=== PATIENT | female | born 1960 | race Caucasian/White ===

== ENCOUNTER 2019-12-24 14:55 | Emergency (ER) | payer MEDICARE, BC, SELFPAY ==
--- NOTE | ~2019-12-24 | CT_ITS ---
EXAMINATION: CT brain wo con DATE: 12/24/2019 18:04 INDICATION: Headache TECHNIQUE: Computed tomography (CT) of the head was performed without intravenous contrast. Sagittal and coronal reconstructions were performed. The mA was adjusted according to patient size. Iterative reconstruction technique was employed. The dose-length product was 605.33 mGy-cm. COMPARISON: head CT dated 05/06/15 FINDINGS: No acute intracranial hemorrhage, acute infarction or abnormal extra axial fluid collection. Ventricl es are normal and symmetric. No mass/mass effect. The orbits, paranasal sinuses and mastoid air cells are normal. Intracranial calcified cerebral atherosclerosis is noted. IMPRESSION: 1. Normal brain. No acute intracranial process. Reviewed, dictated and finalized at location A.
[2019-12-24 15:17] VITALS: BP 135/102; PULSE 80; RESP 20; TEMP 36.9; O2SAT 100
[2019-12-24] MEDS: SODIUM CHLORIDE 0.9% IV 1,000 ML 999 ML IV CONT (15:38)
[2019-12-24] MEDS: KETOROLAC 30 MG/ML VIAL (*BKC) IV PUSH (15:38)
[2019-12-24] MEDS: METOCLOPRAMIDE HCL INJ 10 MG/2 ML VIAL IV PUSH (15:39)
[2019-12-24 15:50] LABS: Basophils Percent Auto 0.6 % (0.2-1.2); Eosinophils Absolute Auto 0.1 K/mm3 (0-0.3); Eosinophils Percent Auto 1.9 % (0-4.4); Hematocrit 38.6 % (37.0-47.0); Hemoglobin 12.7 g/dL (12.0-15.0); Immature Granulocyte Absolute 0.02 K/mm3 (0.00-0.031); Immature Granulocyte Percent A 0.3 % (0-0.5); Lymphocytes Absolute Auto 1.88 K/mm3 (0.9-3.2); Lymphocytes Percent Auto 29.8 % (18.3-44.2); Mean Corpuscular HGB Conc 32.9 g/dl (32-36); Mean Corpuscular Hemoglobin 28.3 pg (26-34); Mean Platelet Volume 9.6 fl (7.4-10.4); Monocytes Absolute Auto 0.3 K/mm3 (0.1-0.6); Monocytes Percent Auto 5.2 % (2.6-8.5); Neutrophils Absolute Auto 3.9 K/mm3 (1.3-6.7); Neutrophils Percent Auto 62.2 % (45.5-73.1); Platelet Count Result 305 k/mm3 (150-375); Red Blood Count 4.49 M/mm3 (4.2-5.4); Red Cell Distribution Width 13.8 % (11.5-14.5); White Blood Count 6.3 K/mm3 (4.5-10.0)
--- NOTE | 2019-12-24 15:59 | ED.GENADULT ---
HPI - General Adult General Chief complaint: Headache Stated complaint: headache, n/v Time Seen by Provider: 12/24/19 15:14 History of Present Illness HPI narrative: Patient is a 59 y/o female complaining of generalized headache since yesterday. She rates her headache as 10/10 initially when it started and as 4/10 currently. She states that she took some Ibuprofen, which did not help with her headache initially. She states that it's one of the worst headache she had. She has some neck pain, nausea, vomiting and sweating. She has no fever. She has no sorethroat, cough, chest pain or abdominal pain. Related Data Home Medications Medication Instructions Recorded Confirmed clonazepam 0.5 mg PO DAILY 12/24/19 fluoxetine 40 mg PO DAILY 12/24/19 Allergies Allergy/AdvReac Type Severity Reaction Status Date / Time No Known Allergies Allergy Verified 12/24/19 15:37 Review of Systems Constitutional: Constitutional: Denies chills, Reports excessive sweating, Denies fever(s), Reports headache(s) and Denies weakness Eyes: Eyes: Denies blurry vision ENT: Reports headache(s) and Denies neck pain Cardiovascular: Cardiovascular: Denies chest pain and Denies dyspnea Respiratory: Respiratory: Denies cough and Denies dyspnea Gastrointestinal: Gastrointestinal: Denies abdominal pain, Denies diarrhea, Denies nausea and Denies vomiting Genitourinary: Genitourinary: Denies hematuria and Denies dysuria Musculoskeletal: Musculoskeletal: Denies back pain and Reports neck pain Neurologic: Reports headache(s) and Denies weakness [facility] Social History Social History Gender identity (if verbalized by the patient): Female Exam Const: General: no acute distress and well developed Orientation/consciousness: oriented to person, oriented to place, oriented to time and patient oriented x3 HENMT: Head: normocephalic Ears: external ears normal General nose exam: Normal external nose present Eyes: General: appearance normal, both eyes and all related structures Conjunctivae: conjunctivae normal Neck: Neck: normal visual inspection and full ROM Chest: Chest palpation & inspection: normal inspection of the chest and no tenderness Resp: Effort & Inspection: normal respiratory effort Auscultation: clear to auscultation bilaterally Cardio: Rate: regular rate Rhythm: regular rhythm GI: GI Palp: No abdominal tenderness and Yes Soft to palpation Skin: General skin exam: normal color and turgor normal Neuro: General: oriented to person, oriented to place, oriented to time and patient oriented x3 Cranial nerves: Yes CN's II-XII intact bilaterally Cognition (Neuro): normal cognition Speech: normal speech Motor exam (neuro): 5/5 motor strength present throughout Sensory Exam: normal sensation Coordination: [id number] test normal and [id number] test normal Extrem: General: normal to inspection, full ROM and no pedal edema Psych: Appearance: grossly normal Mental Status: mental status grossly normal Affect: normal affect Course Vital Signs Vital signs: Vital Signs Temperature 36.9 C 12/24/19 15:17 Pulse Rate 80 12/24/19 15:17 Respiratory Rate 20 12/24/19 15:17 Blood Pressure 135/102 H 12/24/19 15:17 Pulse Oximetry 100 12/24/19 15:17 Temperature 36.9 C 12/24/19 15:17 Pulse Rate 71 12/24/19 17:09 Respiratory Rate 20 12/24/19 17:09 Blood Pressure 136/80 12/24/19 17:09 Pulse Oximetry 98 12/24/19 17:09 Procedures Lumbar Puncture Lumbar Puncture #1: Lumbar Puncture Date: 12/24/19 Lumbar Puncture Time: 17:22 Time Out Performed: Yes Patient Position: left lateral decubitus Skin Prep: Povidone-Iodine 1% Anesthetic: lidocaine 1% Amount of anesthesia used (mL): 2 Spinal Needle Gauge: 20G Interspace Used: L4-L5 Spinal Fluid: fluid obtained Fluid Initially Obtained: clear
[2019-12-24 16:01] LABS: Blood Urea Nitrogen 12 mg/dL (7-17); Carbon Dioxide 26 mmol/L (22-30); Chloride 101 mmol/L (98-107); Estimated CRCL calculation 66 ml/min; Estimated Glomerular Filt Rate > 60; Glucose 93 mg/dL (65-105); Potassium 4.1 mmol/L (3.4-5.0); Sodium 135 mmol/L (137-145)
[2019-12-24 16:03] LABS: Add Urine Microscopic? NO; Appearance Urine Clear (Clear); Bilirubin Urine Negative (Negative); Blood Urine Negative (Negative); Color Urine Yellow (Yellow); Glucose Urine UA Negative (Negative); Ketones Urine Negative (Negative); Leukocyte Esterase Ur Negative LEU/UL (Negative); Nitrate Urine Negative (Negative); Protein Urine Negative (Negative); Specific Grav Ur 1.013 (1.001-1.035); Urobilinogen Urine Negative mg/dL (<2.0)
[2019-12-24 16:15] VITALS: BP 129/106; PULSE 74; RESP 20; O2SAT 98
[2019-12-24 17:09] VITALS: BP 136/80; PULSE 71; RESP 20; O2SAT 98
[2019-12-24 17:56] LABS: Glucose CSF 56 mg/dL (40-70); Total Protein CSF 26 mg/dL (12-60)
[2019-12-24 18:43] LABS: Appearance CSF Clear (Clear); CSF source CSF; Color CSF Colorless (Colorless)
[2019-12-24 18:44] LABS: Nucleated Cell CSF 3 /uL (0-5); Red Blood Cell CSF 0 (0-2)
[2019-12-24 18:46] LABS: Lymphocytes CSF 80 % (40-80); Monocytes CSF 20 % (15-45)
[2019-12-24 19:27] VITALS: BP 128/78; PULSE 60; RESP 20; O2SAT 100
[2019-12-24 19:39] VITALS: BP 121/79; PULSE 61; RESP 20; O2SAT 100
[2019-12-27 12:27] LABS: Herpes Simplex Type 1 DNA PCR Not Detected (Not Detected); Herpes Simplex Type 2 DNA PCR Not Detected (Not Detected)
== END 2019-12-24 19:55 | disposition home or self-care (01) ==
PROVIDERS: Emergency Provider Emergency Medicine
DX: R51 Headache (principal)
CPT/HCPCS: 36415; 62270; 70450; 80048; 81003; 82945; 84157; 85025; 87070; 87205; 87529; 88108; 89051; 96361; 96374; 96375; 99285; J1200; J1885; J2765; J3010; J7030

== ENCOUNTER 2021-04-05 08:58 | Emergency (ER) | payer MEDICARE, SELFPAY ==
--- NOTE | ~2021-04-05 | XR_ITS ---
EXAMINATION: XR shoulder LT min 2V EXAM DATE: 04/05/2021 09:49 INDICATION: L shoulder pain for months. TECHNIQUE: The following left shoulder projections obtained: frontal projection with internal rotatio n, frontal projection with external rotation, Grashey, and scapular Y view (4+ views). There is no p rior study for comparison. FINDINGS: No evidence of left shoulder rotator cuff calcific tendinosis. There is mild glenohumeral joint, mild acromioclavicular joint primary osteoarthritis. There are no acute fractures or dislocat ions identified. There is no subcutaneous gas. The soft tissue is unremarkable. There are no radi opaque foreign bodies. IMPRESSION: Mild left shoulder osteoarthritis. Reviewed, dictated and finalized at location A.
[2021-04-05 09:15] VITALS: BP 175/88; PULSE 87; RESP 18; O2SAT 99
--- NOTE | 2021-04-05 09:20 | PC.NURSE ---
EDP Curt notified of patient's moderate risk on [place] assessment. Per EDP, no further interventions needed.
[2021-04-05] MEDS: KETOROLAC 30 MG/ML VIAL (*BKC) IM (09:57)
--- NOTE | 2021-04-05 10:20 | ED.GENADULT ---
HPI - General Adult General Chief complaint: Extremity Injury, Upper Stated complaint: left post shoulder pain Time Seen by Provider: 04/05/21 09:18 History of Present Illness HPI narrative: Patient presents with left shoulder pain. Patient reports she fell several months ago onto her left shoulder ever since then she has had intermittent left shoulder pain. Ribs over the past couple days she has had increase in her left shoulder pain that is worse with movement of the left upper extremity. She denies any new trauma she denies any focal numbness or weakness she reports her pain is really severe so she went to come the ER for evaluation Related Data Home Medications Medication Instructions Recorded Confirmed clonazepam 0.5 mg PO DAILY 12/24/19 fluoxetine 40 mg PO DAILY 12/24/19 Allergies Allergy/AdvReac Type Severity Reaction Status Date / Time No Known Allergies Allergy Verified 12/24/19 15:37 Review of Systems Review of Systems: CONSTITUTIONAL: Denies fever, chills, or sweats. EYES: Denies visual changes, redness, or discharge. ENT: Denies rhinorrhea, congestion, sore throat, or otalgia. CARDIOVASCULAR: Denies chest pain, palpitations, or edema. RESPIRATORY: Denies cough or dyspnea. GASTROINTESTINAL: Denies abdominal pain, nausea, vomiting, or diarrhea. GENITOURINARY: Denies dysuria or hematuria. SKIN: Denies rash or itching. MUSCULOSKELETAL: Denies back pain, joint pain, or myalgia. NEUROLOGIC: Denies headache, numbness, dizziness, or weakness. PSYCHIATRIC: Denies anxiety or depression. All systems reviewed & are unremarkable except as noted in HPI and below PMFSH Social History Social History Gender identity (if verbalized by the patient): Female Exam Narrative: GENERAL: Well-appearing, well-nourished, and in no acute distress. HEAD: Normocephalic, atraumatic. EYES: PERRLA and EOMI. ENT: Nares clear, no rhinorrhea or epistaxis. Mucous membranes moist. NECK: Supple. No masses. No JVD EXTREMITIES: Normal range of motion. No edema. Mild diffuse tenderness on the left shoulder there is some focal tenderness along the trapezius no obvious deformity no open or draining wounds SKIN: Warm, dry, no rash. NEURO: 5 out of 5 strength in the bilateral upper extremities with sensation intact to light touch alert and oriented x3. PSYCH: Normal mood and affect. Course Reevaluation(s) Reevaluation #1: Patient resting comfortably results and plan reviewed with patient. Patient comfortable outpatient plan. Date: 04/05/21 Time: 10:08 Vital Signs Vital signs: Vital Signs Pulse Rate 87 04/05/21 09:15 Respiratory Rate 18 04/05/21 09:15 Blood Pressure 175/88 H 04/05/21 09:15 Pulse Oximetry 99 04/05/21 09:15 Pulse Rate 78 04/05/21 10:39 Respiratory Rate 16 04/05/21 10:39 Blood Pressure 118/88 04/05/21 10:39 Pulse Oximetry 98 04/05/21 10:39 Medical Decision Making MDM Narrative Medical decision making narrative: H&P as above, vss, pt looks clinically well, exam without deformity or focal neuro logical compromise, imaging without acute process, additional labs/img considered, symptomatic relief available as needed, on reevaluation pt continues to looks clinically well. Suspect exacerbation of chronic arthritis, dns fracture, dislocation, pneumothorax. plan to tx/monitor as op w/ pcm f/u findings/plan discussed with pt, pt agree/comfortable with plan, return precautions given Vital Signs Vital Signs: Vital Signs Pulse Rate 87 04/05/21 09:15 Respiratory Rate 18 04/05/21 09:15 Blood Pressure 175/88 H 04/05/21 09:15 Pulse Oximetry 99 04/05/21 09:15 Pulse Rate 78 04/05/21 10:39 Respiratory Rate 16 04/05/21 10:39 Blood Pressure 118/88 04/05/21 10:39 Pulse Oximetry 98 04/05/21 10:39 Discharge Plan Discharge Clinical Impression: Left shoulder pain Qualifiers: Chronicity: unspecified Qualified Code(s): M
[2021-04-05 10:39] VITALS: BP 118/88; PULSE 78; RESP 16; O2SAT 98
== END 2021-04-05 10:40 | disposition home or self-care (01) ==
PROVIDERS: Emergency Provider Emergency Medicine
DX: M25.512 Pain in left shoulder (principal)
CPT/HCPCS: 73030; 96372; 99283; J1885

== ENCOUNTER 2024-01-14 20:34 | Emergency (ER) | payer MEDICARE, SELFPAY ==
[2024-01-14] VITALS (22 sets, daily range): BP systolic 119–136; BP diastolic 62–81; PULSE 69–94; RESP 12–26; TEMP 36.8; O2SAT 98–100
--- NOTE | ~2024-01-14 | XR_ITS ---
EXAMINATION: XR chest 2V Exam Date/Time: 01/14/2024 21:02 CDT HISTORY: weakness, Pt states swelling to both feet, sob x today Comparison: 08/22/2015. RESULT: Lines, tubes, and devices: None. Lungs and pleura: Clear. Cardiomediastinal silhouette: Stable. Other: No acute osseous or upper abdominal finding. IMPRESSION: No acute cardiopulmonary process. Reviewed, dictated and finalized at location K.
--- NOTE | 2024-01-14 20:42 | ECG_ITS ---
Test Date: 2024-01-14 20:44:43 Measurements Intervals [place] Rate: 84 P: 59 W[place]: 165 QRS: 17 QRSD: 103 T: 38 QT: 356 QTc: 422 Interpretive Statements SINUS RHYTHM NORMAL ECG No previous ECG available for comparison Electronically Signed On 01-15-2024 07:42:45 CDT by Richar Michael D.O.
[2024-01-14 20:53] LABS: Basophils Percent Auto 0.3 % (0.2-1.2); Eosinophils Absolute Auto 0.1 K/mm3 (0-0.3); Eosinophils Percent Auto 0.9 % (0-4.4); Hematocrit 32.7 % (37.0-47.0); Hemoglobin 10.8 g/dL (12.0-15.0); Immature Granulocyte Absolute 0.06 K/mm3 (0.00-0.031); Immature Granulocyte Percent A 0.6 % (0-0.5); Lymphocytes Percent Auto 7.6 % (18.3-44.2); Mean Corpuscular Volume 84.7 fl (80-100); Mean Platelet Volume 9.4 fl (7.4-10.4); Monocytes Absolute Auto 0.6 K/mm3 (0.1-0.6); Monocytes Percent Auto 6.2 % (2.6-8.5); Neutrophils Absolute Auto 7.8 K/mm3 (1.3-6.7); Neutrophils Percent Auto 84.4 % (45.5-73.1); Platelet Count Result 321 k/mm3 (150-375); Red Blood Count 3.86 M/mm3 (4.2-5.4); Red Cell Distribution Width 13.9 % (11.5-14.5); White Blood Count 9.3 K/mm3 (4.5-10.0)
[2024-01-14 21:04] LABS: Alanine Aminotransferase 18 U/L (6-35); Albumin Level 4.1 g/dL (3.5-5.1); Alkaline Phosphatase 73 U/L (38-126); Anion Gap 8 mmol/L (4-12); Aspartate Amino Transferase 36 U/L (14-36); Bilirubin,Total 0.8 mg/dL (0.2-1.3); Blood Urea Nitrogen 12 mg/dL (7-17); Calcium 8.6 mg/dL (8.4-10.2); Carbon Dioxide 24 mmol/L (22-30); Chloride 98 mmol/L (98-107); Estimated Glomerular Filt Rate > 60; Glucose 104 mg/dL (65-110); Potassium 3.8 mmol/L (3.4-5.0); Sodium 130 mmol/L (137-145)
[2024-01-14 21:04] LABS: Ethanol < 10 mg/dL (<10)
[2024-01-14 21:04] LABS: Lactic Acid Reflex 0.5 mmol/L (0.7-2.0)
[2024-01-14 22:09] LABS: Acetaminophen < 10 ug/mL (10-30); Salicylate < 1.0 mg/dL (2-20)
--- NOTE | 2024-01-14 23:22 | ED.PSYCH ---
HPI - Psych General Chief Complaint: Psychiatric Symptoms Stated Complaint: generalized weakness Time Seen by Provider: 01/14/24 20:51 History of Present Illness HPI Narrative: Patient here for generalized weakness; when EMS arrived they reported that there was writing on the vargas, the house/yard looked torn apart; patient admits that she does have history of bipolar disorder and she is on fluoxetine for this and has gone long periods without taking it but recently started taking it again because she found some pills, she admits that she thinks there is a chance she may be in a manic episode because she did draw all over the house, she states that it was giving her santo, she does also admit that she did recently drink a small cup of her daughters ashes. 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 Surgical History Surgical History History of mandibular surgery Family History Family History Mother Diabetes mellitus Cerebrovascular accident Heart disease Father Rheumatoid arthritis Glaucoma Social History Social History (Updated 01/10/23 @ 09:19 by Melissa Johansen MA) Smoking status: Never smoker Alcohol intake: never Substance use type: marijuana Lack of Transportation: YES Lack of Food: Never True Current Housing: I Have Housing Concerned About Future Housing: No Difficulty Paying Gas/Electric Bills: No Difficulty Paying for Meds: No Currently Unemployed: No Education: High School Diploma/GED Difficulty w/ Childcare or Family Care: No Living arrangements: with family Occupation/Education: unemployed Gender identity (if verbalized by the patient): Female Sexual Orientation (if Verbalized by the Patient): Straight or Heterosexual Exam Narrative: EXAMINATION OF ORGAN SYSTEMS/BODY AREAS: Constitutional: Vital signs per nursing GENERAL:[No acute distress, non-toxic appearing.] HEAD: Normal with no signs of head trauma. EYES: EOMI, conjunctiva normal ENT: Hearing grossly intact LUNGS: Nonlabored breathing. HEART: [Regular rate and rhythm] ABD: [Soft], [nontender to palpation] EXT: Normal range of motion SKIN: [No rashes or lesions.] NEURO: [Alert and oriented x 3. No gross focal sensory or strength deficits.] PSYCH: Slightly bizarre affect but very pleasant and cooperative Course Vital Signs Vital signs: Vital Signs Temperature 98.3 F 01/14/24 20:33 Pulse Rate 89 01/14/24 20:33 Respiratory Rate 16 01/14/24 20:33 Blood Pressure 136/81 01/14/24 20:33 Pulse Oximetry 98 01/14/24 20:33 Oxygen Delivery Room Air 01/14/24 20:33 Temperature 98.3 F 01/14/24 20:33 Pulse Rate 84 01/15/24 02:02 Respiratory Rate 16 01/15/24 02:02 Blood Pressure 116/83 01/15/24 02:02 Pulse Oximetry 98 01/15/24 00:00 Oxygen Delivery Room Air 01/14/24 20:33 MDM - Psych MDM Narrative Medical decision making narrative: Pt p/w generalized weakness; admits that she thinks she is possibly having a manic episode, I do feel this is likely the case given the description of her house from EMS, and the fact that she just started an SSRI when she has a history of bipolar disord
[2024-01-14 23:45] LABS: Appearance Urine Clear (Clear); Bacteria Urine None Seen /hpf; Bilirubin Urine 1+ (Negative); Blood Urine Negative (Negative); Color Urine Dark Yellow (Yellow); Glucose Urine UA Negative (Negative); Ketones Urine 3+ mg/dL (Negative); Leukocyte Esterase Ur 2+ LEU/UL (Negative); Need Manual Microscopic Reviewed; Nitrate Urine Positive (Negative); Non Pathogenic Casts 0-2; Protein Urine Trace mg/dL (Negative); RBC Urine 0-2 /hpf (0-2); Squamous Epithelial Cell Urine None Seen /hpf (Few); Urobilinogen Urine 0.2 mg/dL (<2.0); WBC Urine 0-5 /hpf (0-3); pH Urine 5.5 (5.0-9.0)
[2024-01-14 23:46] LABS: Add Urine Microscopic? YES
[2024-01-15] VITALS (43 sets, daily range): BP systolic 91–141; BP diastolic 55–98; PULSE 68–94; RESP 12–29; TEMP 36.6–36.8; O2SAT 90–100
[2024-01-15 00:02] LABS: Influenza A QL RT-PCR Negative (Negative); Influenza B QL RT-PCR Negative (Negative); RSV RNA, RT-PCR Negative (Negative); SARS-CoV-2 RNA PCR Negative (Negative)
[2024-01-15 00:25] LABS: Barbiturate Screen Urine Negative (Negative); Benzodiazepines Screen Urine Negative (Negative)
[2024-01-15 00:29] LABS: Cannabinoid Screen Urine Positive (Negative); Cocaine Screen Urine Negative (Negative); Methadone Screen Urine Negative (Negative); Opiate Screen Urine Negative (Negative); Phencyclidine Screen Urine Negative (Negative)
[2024-01-15 00:36] LABS: Amphetamine Screen Urine Negative (Negative)
--- NOTE | 2024-01-15 01:03 | PC.NURSE ---
Crisis here to evaluate patient.
--- NOTE | 2024-01-15 02:24 | PC.NURSE ---
[id number] with [facility] intake calls to request patients chart be faxed to [phone] for possible bed placement. She also left phone number of [phone] if she needed to be reached.
--- NOTE | 2024-01-15 04:10 | PC.NURSE ---
Patient called out for pain medication. VORB to give 1000mg PO tylenol for pain. Orders placed.
[2024-01-15] MEDS: ACETAMINOPHEN 500 MG TABLET 1000 MG PO (04:14)
--- NOTE | 2024-01-15 06:20 | PC.NURSE ---
Patient states you guys have helped me so much, you took the devil out of me. I feel a weight has been lifted. Thank you so much. Patient then states I am ready for some help, and I appreciate all the help I have gotten here. Patient informed that a breakfast tray will be ordered for her in case she is still here waiting for EMS to transfer her. Patient verbalized understanding and states thank you so much. Patient's lights dimmed, call light within reach.
[2024-01-15] MEDS: LORazepam INJ (*CRX) 2 MG/ML VIAL IM (08:36)
--- NOTE | 2024-01-15 08:40 | PC.NURSE ---
EMS here to transport to [facility]. Pt agitated thinks staff is trying to kill/poison her. Lorazepam given for agitation and anxiety
== END 2024-01-15 08:44 ==
PROVIDERS: Emergency Provider Emergency Medicine; PCP Nurse Practitioner Family
DX: F91.8 Other conduct disorders (principal); F31.9 Bipolar disorder, unspecified; Z79.899 Other long term (current) drug therapy; Z20.822 Contact with and (suspected) exposure to COVID-19
CPT/HCPCS: 36415; 71046; 80053; 80307; 81001; 83605; 84443; 85025; 87637; 93005; 96372; 99285; A9270; J2060